=== PATIENT | female | born 1980 | race Caucasian/White ===

== ENCOUNTER 2018-03-20 07:02 | Emergency (ER) | payer MEDICARE ==
[2018-03-20 07:16] VITALS: BP 104/68; PULSE 77; TEMP 97.9; O2SAT 100; BMI 18.8
--- NOTE | 2018-03-20 08:14 | C.PDOC ---
History Of Present Illness 38 y/o female, with PMHx of depression, anxiety, anorexia, and bulimia, presents to ED for evaluation of anxiety. Pt states she has not been taking her psych meds, and has not followed with a psychiatrist for a significant time. Pt is seeking assistance with outpatient psych follow up. Otherwise, denies SI/HI, hallucinations, headache, dizziness, chest pain, shortness of breath, abdominal pain, n/v/d, or fever. Time Seen by Provider: 03/20/18 07:29 Chief Complaint (Nursing): Psychiatric Evaluation History Per: Patient History/Exam Limitations: no limitations Onset/Duration Of Symptoms: Days Current Symptoms Are (Timing): Still Present Suicide/Self Injury Attempted (Context): None Modifying Factor(s): None Severity: None Pain Scale Rating Of: 0 Associated Symptoms: Anxiety. denies: Suicidal Thoughts, Suicidal Plan Involuntary Hold By: None Recent travel outside of the [place]: No Additional History Per: Patient Past Medical History Reviewed: Historical Data, Nursing Documentation, Vital Signs Vital Signs: Last Vital Signs Temp 97.9 F 03/20/18 07:15 Pulse 77 03/20/18 07:15 Resp 17 03/20/18 07:15 BP 104/68 03/20/18 07:15 Pulse Ox 100 03/20/18 07:15 - Medical History PMH: Anemia, Depression Surgical History: Cholecystectomy Family History: States: Unknown Family Hx - Social History Hx Alcohol Use: Yes Hx Substance Use: Yes (Stopped 3-months ago) - Immunization History Hx Tetanus Toxoid Vaccination: No Hx Influenza Vaccination: No Hx Pneumococcal Vaccination: No Review Of Systems Except As Marked, All Systems Reviewed And Found Negative. Constitutional: Negative for: Fever, Chills Cardiovascular: Negative for: Chest Pain, Palpitations Respiratory: Negative for: Shortness of Breath Gastrointestinal: Negative for: Nausea, Vomiting, Abdominal Pain Neurological: Negative for: Headache, Dizziness Psych: Positive for: Anxiety. Negative for: Suicidal ideation Physical Exam - Physical Exam Appears: Non-toxic, No Acute Distress, Other (thin, frail) Skin: Normal Color, Warm, Dry Head: Atraumatic, Normacephalic Eye(s): bilateral: Normal Inspection Oral Mucosa: Dry Neck: Normal ROM, Supple Cardiovascular: Rhythm Regular, No Murmur Respiratory: Normal Breath Sounds, No Rales, No Rhonchi, No Wheezing Gastrointestinal/Abdominal: Soft, No Tenderness Extremity: Normal ROM, No Deformity Extremity: Bilateral: Atraumatic Neurological/Psych: Oriented x3, Normal Speech, Other (anxious) ED Course And Treatment O2 Sat by Pulse Oximetry: 100 (RA) Pulse Ox Interpretation: Normal Medical Decision Making Medical Decision Making: Pt will be evaluated by animal husbandry worker and will assist with setting up outpatient follow up appointment with Dr. Perez. Disposition Counseled Patient/Family Regarding: Diagnosis, Need For Followup - Disposition Disposition: HOME/ ROUTINE Disposition Time: 08:35 Condition: STABLE Instructions: Anxiety, Adult (DC) Forms: [facility] (Filipino), General Discharge Instructions, Work Excuse - POA Present On Arrival: None - Clinical Impression Clinical Impression: Acute depression, Anxiety - Scribe Statement The provider has reviewed the documentation as recorded by the Scribe Gisela Omalley All medical record entries made by the Ramónibe were at my direction and personally dictated by me. I have reviewed the chart and agree that the record accurately reflects my personal performance of the history, physical exam, medical decision making, and the department course for this patient. I have also personally directed, reviewed, and agree with the discharge instructions and disposition.
[2018-03-20 08:55] VITALS: RESP 18
== END 2018-03-20 08:55 | disposition home or self-care (01) ==
LOC: C.ER 07:02
DX: F32.9 Major depressive disorder, single episode, unspecified (principal); F41.9 Anxiety disorder, unspecified